=== PATIENT | male | born 1955 | race African-American/Black ===

== ENCOUNTER 2020-12-08 23:07 | Inpatient (IN) | payer MEDICARE, MEDICAID ==
[~2020-12-08] VITALS: Ht 175.3 cm; Wt 78.0 kg
[2020-12-08] MEDS ORDERED: CEFTRIAXONE 1 G PREMIX 50 ML IV ONE (23:30)
[2020-12-08] MEDS ORDERED: AZITHROMYCIN 500 MG in DEXT 5% WATER 250 ML IV ONE (23:30)
[2020-12-08] MEDS ORDERED: SODIUM CHLORIDE 0.9% 1,000 ML IV ONE (23:30)
[2020-12-08 23:51] LABS: BASOPHILS % 0.8 % (0.0-2.0); EOSINOPHILS % 2.1 % (0.0-5.0); HEMATOCRIT. 36.4 % (42.0-52.0); HEMOGLOBIN. 11.3 g/dL (14.0-18.0); LYMPHOCYTES % 42.7 % (20.0-50.0); MEAN CORPUSCULAR HEMOGLOBIN 28.6 pg (28.0-32.0); MEAN CORPUSCULAR VOLUME 92.2 fL (80.0-94.0); MEAN PLATELET VOLUME 8.4 fl (7.4-10.4); MONOCYTES % 12.2 % (2.0-8.0); NEUTROPHILS % 42.2 % (40.0-76.0); PLATELET 363 x1000/uL (130-400); RED BLOOD CELL COUNT 3.95 mill/uL (4.7-6.1); RED CELL DISTRIBUTION WIDTH 15.1 % (11.6-14.6)
[2020-12-08 23:52] LABS: BG BASE EXCESS -0.6 mmol/L (-2.0-2.0); BG CARBOXYHEMOGLOBIN 0.8 % (0.5-1.5); BG DEOXYHEMOGLOBIN 5.3 % (0.0-5.0); BG FRACTION INSPIRED OXYGEN 28; BG HCO3 ACT 23.7 mmol/L (22.0-26.0); BG METHEMOGLOBIN 0.3 % (0.0-1.5); BG OXYGEN SATURATION 94.6 % (92.0-98.5); BG OXYHEMOGLOBIN 93.6 % (94.0-97.0); BG PCO2 37.4 mmHg (35.0-45.0); BG PH 7.419 (7.350-7.450); BG SAMPLE SITE RIGHT BRACHIAL; BG TOTAL HEMOGLOBIN 11.8 g/dL (12.0-18.0); BG VENT MODE NASAL CANNULA
[2020-12-08 23:57] LABS: CHLORIDE 113 mEq/L (98-107)
[2020-12-08 23:59] LABS: INR 1.2; PROTHROMBIN TIME 12.4 sec (9.6-11.0)
[2020-12-09 02:28] LABS: BG BASE EXCESS -4.3 mmol/L (-2.0-2.0); BG CARBOXYHEMOGLOBIN 0.3 % (0.5-1.5); BG DEOXYHEMOGLOBIN 0.6 % (0.0-5.0); BG FRACTION INSPIRED OXYGEN 100; BG HCO3 ACT 20.4 mmol/L (22.0-26.0); BG METHEMOGLOBIN 0.3 % (0.0-1.5); BG OXYGEN SATURATION 99.4 % (92.0-98.5); BG OXYHEMOGLOBIN 98.8 % (94.0-97.0); BG PCO2 35.9 mmHg (35.0-45.0); BG PH 7.372 (7.350-7.450); BG TOTAL HEMOGLOBIN 10.7 g/dL (12.0-18.0); BG VENT MODE MASK - NRB
[2020-12-09 08:55] VITALS: BP 152/90
[2020-12-09] MEDS ORDERED: ONDANSETRON HCL 4MG/2ML INJ IV PRN (09:00)
[2020-12-09] MEDS ORDERED: ALBUTEROL 6.7GM HFA INHALER ORI PRN (09:00)
[2020-12-09] MEDS ORDERED: ACETAMINOPHEN 325MG TABLET PO PRN (09:00)
[2020-12-09] MEDS: FUROSEMIDE 40MG/4ML VIAL IVP SCH ×2 (09:52→16:18)
[2020-12-09 10:08] VITALS: BP 152/90
[2020-12-09 11:55] LABS: *AMPHETAMINES SCREEN URINE NEGATIVE (NEGATIVE); *BENZODIAZEPINES SCREEN URINE NEGATIVE (NEGATIVE); CANNABINOID URINE SCREEN NEGATIVE (NEGATIVE)
[2020-12-09 11:57] LABS: *COCAINE SCREEN URINE NEGATIVE (NEGATIVE); METHADONE URINE SCREEN NEGATIVE (NEGATIVE); PHENCYCLIDINE URINE SCREEN NEGATIVE (NEGATIVE)
[2020-12-09 11:59] LABS: *BARBITURATES SCREEN URINE NEGATIVE (NEGATIVE); OPIATES URINE SCREEN NEGATIVE (NEGATIVE)
[2020-12-09 12:00] VITALS: BP 141/85
[2020-12-09] MEDS ORDERED: DEXTROSE 50% WATER 50ML SYRINGE IV PRN (14:00)
[2020-12-09] MEDS: ENOXAPARIN 80MG/0.8ML SYR SUBCUT SCH (14:11)
[2020-12-09] MEDS ORDERED: METF-416 MT (15:05)
[2020-12-09] MEDS ORDERED: APIX5TAB MT (15:05)
[2020-12-09] MEDS ORDERED: GABA800T97 MT (15:05)
[2020-12-09] MEDS ORDERED: METO-385 MT (15:05)
[2020-12-09] MEDS ORDERED: ERGO500013 (15:05)
[2020-12-09] MEDS ORDERED: LEVE1000 MT (15:05)
[2020-12-09] MEDS ORDERED: INSU100I45 SQ (15:05)
[2020-12-09] MEDS ORDERED: ALBU6.7H9 INH ×2 (15:05→15:32)
[2020-12-09] MEDS ORDERED: FURO40TA5 MT (15:05)
[2020-12-09] MEDS ORDERED: ATOR40TA70 MT (15:05)
[2020-12-09] MEDS ORDERED: ALFU10TA9 PO (15:05)
[2020-12-09] MEDS ORDERED: INSU100I28 SQ (15:05)
[2020-12-09 16:00] VITALS: BP 123/79
[2020-12-09] MEDS: BLOOD SUGAR DIAGNOSTIC STRIP TEST SCH ×2 (16:49→20:53)
[2020-12-09] MEDS: INSULIN LISPRO 100 UNITS/ML SUBCUT SCH ×2 (16:50→20:53)
[2020-12-09 20:00] VITALS: BP 118/68
[2020-12-09] MEDS: GABAPENTIN 400MG CAPSULE PO SCH (21:00)
[2020-12-09] MEDS ORDERED: MEDICATION NOT ON FORMULARY EA (Levetiracetam (Keppra) 2 TAB) MT SCH (21:00)
[2020-12-09] MEDS: ATORVASTATIN CALCIUM 40MG TABLET PO SCH (21:00)
[2020-12-09] MEDS: LEVETIRACETAM 500MG TABLET PO SCH (21:00)
[2020-12-09] MEDS ORDERED: MEDICATION NOT ON FORMULARY EA (Gabapentin 1 TAB) MT SCH (22:00)
[2020-12-10] VITALS: BP 129/63
[2020-12-10] MEDS: ALBUTEROL 6.7GM HFA INHALER ORI SCH ×2 (01:13→09:09)
[2020-12-10 04:00] VITALS: BP 150/89
[2020-12-10] MEDS: ENOXAPARIN 80MG/0.8ML SYR SUBCUT SCH ×3 (05:46→21:19)
[2020-12-10] MEDS: GABAPENTIN 400MG CAPSULE PO SCH ×3 (05:48→21:20)
[2020-12-10] MEDS: BLOOD SUGAR DIAGNOSTIC STRIP TEST SCH ×4 (07:40→21:21)
[2020-12-10 07:44] LABS: BASOPHILS % 1.8 % (0.0-2.0); EOSINOPHILS % 2.5 % (0.0-5.0); HEMOGLOBIN. 10.2 g/dL (14.0-18.0); LYMPHOCYTES % 28.8 % (20.0-50.0); MEAN CORPUSCULAR HEMOGLOBIN 29.3 pg (28.0-32.0); MEAN CORPUSCULAR VOLUME 92.4 fL (80.0-94.0); MEAN PLATELET VOLUME 8.6 fl (7.4-10.4); MONOCYTES % 13.1 % (2.0-8.0); NEUTROPHILS % 53.8 % (40.0-76.0); PLATELET 253 x1000/uL (130-400); RED BLOOD CELL COUNT 3.47 mill/uL (4.7-6.1); RED CELL DISTRIBUTION WIDTH 14.8 % (11.6-14.6)
[2020-12-10] MEDS: INSULIN LISPRO 100 UNITS/ML SUBCUT SCH ×4 (07:56→21:00)
[2020-12-10 08:00] VITALS: BP 142/81
[2020-12-10] MEDS: LEVETIRACETAM 500MG TABLET PO SCH ×2 (08:03→21:20)
[2020-12-10] MEDS: FUROSEMIDE 40MG/4ML VIAL IVP SCH ×2 (08:03→17:31)
[2020-12-10 08:28] LABS: CHLORIDE 109 mEq/L (98-107)
[2020-12-10 12:00] VITALS: BP 128/84
[2020-12-10 12:16] LABS: CHLORIDE 108 mEq/L (98-107)
[2020-12-10] MEDS ORDERED: IPRATROPIUM/ALBUTEROL 0.5-3(2.5)MG/3ML NEB HHN PRN (14:15)
[2020-12-10 16:00] VITALS: BP 138/73
[2020-12-10 20:00] VITALS: BP 139/72
[2020-12-10] MEDS ORDERED: IOHEXOL-350 100 ML BOTTLE ONE (21:00)
[2020-12-10] MEDS: CARVEDILOL 3.125 MG TABLET PO SCH (21:20)
[2020-12-10] MEDS: ATORVASTATIN CALCIUM 40MG TABLET PO SCH (21:20)
[2020-12-11] VITALS: BP 129/70
[2020-12-11] MEDS: BUDESONIDE 0.5MG/2ML NEB HHN SCH ×2 (00:14→08:57)
[2020-12-11] MEDS: IPRATROPIUM/ALBUTEROL 0.5-3(2.5)MG/3ML NEB HHN SCH ×3 (00:15→14:11)
[2020-12-11 04:00] VITALS: BP 146/89
[2020-12-11] MEDS: BLOOD SUGAR DIAGNOSTIC STRIP TEST SCH ×2 (06:13→12:10)
[2020-12-11] MEDS: GABAPENTIN 400MG CAPSULE PO SCH ×2 (06:13→13:24)
[2020-12-11 06:40] LABS: CHLORIDE 106 mEq/L (98-107)
[2020-12-11] MEDS: INSULIN LISPRO 100 UNITS/ML SUBCUT SCH ×2 (06:43→12:40)
[2020-12-11 07:09] LABS: BASOPHILS % 2.1 % (0.0-2.0); EOSINOPHILS % 2.5 % (0.0-5.0); HEMATOCRIT. 31.5 % (42.0-52.0); HEMOGLOBIN. 10.1 g/dL (14.0-18.0); LYMPHOCYTES % 34.6 % (20.0-50.0); MEAN CORPUSCULAR HEMOGLOBIN 29.5 pg (28.0-32.0); MEAN CORPUSCULAR VOLUME 92.2 fL (80.0-94.0); MONOCYTES % 10.9 % (2.0-8.0); NEUTROPHILS % 49.9 % (40.0-76.0); PLATELET 259 x1000/uL (130-400); RED BLOOD CELL COUNT 3.42 mill/uL (4.7-6.1)
[2020-12-11] MEDS: CARVEDILOL 3.125 MG TABLET PO SCH (08:39)
[2020-12-11] MEDS: FUROSEMIDE 40MG/4ML VIAL IVP SCH (08:39)
[2020-12-11] MEDS: LEVETIRACETAM 500MG TABLET PO SCH (08:40)
[2020-12-11] MEDS: ENOXAPARIN 80MG/0.8ML SYR SUBCUT SCH (08:41)
[2020-12-11] MEDS ORDERED: CARV6.2548 MT (14:41)
[2020-12-11] MEDS ORDERED: APIX5TAB MT (14:41)
[2020-12-11] MEDS ORDERED: FURO-151 MT (14:41)
[2020-12-11] MEDS ORDERED: FLUT1DIS3 INH (14:41)
[2020-12-11] MEDS ORDERED: ALBU6.7H9 INH (14:41)
[2020-12-11 17:57] VITALS: BP 137/67
== END 2020-12-11 18:15 | disposition home or self-care (01) | DRG 291 ==
LOC: ER 23:07 → 7WST 12-09 03:19 → ENRESERV 12-09 07:09 → 8WST 12-10 09:57
PROVIDERS: ADMIT Internal Medicine; ATTEND Internal Medicine
DX: I11.0 Hypertensive heart disease with heart failure (principal); J96.01 Acute respiratory failure with hypoxia; J18.9 Pneumonia, unspecified organism; I48.92 Unspecified atrial flutter; E44.1 Mild protein-calorie malnutrition; J44.0 Chronic obstructive pulmonary disease with (acute) lower respiratory infection; I50.23 Acute on chronic systolic (congestive) heart failure; E11.649 Type 2 diabetes mellitus with hypoglycemia without coma; D64.9 Anemia, unspecified; E78.5 Hyperlipidemia, unspecified; E87.8 Other disorders of electrolyte and fluid balance, not elsewhere classified; F17.210 Nicotine dependence, cigarettes, uncomplicated; G40.909 Epilepsy, unspecified, not intractable, without status epilepticus; I27.20 Pulmonary hypertension, unspecified; Z20.822 Contact with and (suspected) exposure to COVID-19; I48.91 Unspecified atrial fibrillation; I42.9 Cardiomyopathy, unspecified; Z86.16 Personal history of COVID-19; Z79.01 Long term (current) use of anticoagulants; Z68.25 Body mass index [BMI] 25.0-25.9, adult
CPT/HCPCS: 36415; 36600; 71045; 71275; 76536; 80048; 80053; 80061; 80305; 82375; 82805; 82962; 83036; 83605; 83880; 84145; 84443; 84484; 85025; 93005; 93306; 93970; 94640; 97162; 99291; J0456; J0696; J1650; J1815; J1940; J7030; J7060; J7626; Q9967; U0003